=== PATIENT | male | born 1985 | race Hispanic/Latino ===

== ENCOUNTER 2017-04-11 16:32 | Emergency (ER) | payer OTHER ==
[2017-04-11] MEDS ORDERED: Adacel (T-DAP) 0.5 ML VIAL ONE (16:37)
[2017-04-11] MEDS ORDERED: Bacitracin Zinc 1 Packet ONE (16:40)
== END 2017-04-11 16:47 | disposition home or self-care (01) ==
LOC: BURERS 16:32
DX: S41.131A Puncture wound without foreign body of right upper arm, initial encounter (principal); W26.8XXA Contact with other sharp object(s), not elsewhere classified, initial encounter
CPT/HCPCS: 90471; 90715